=== PATIENT | male | born 1985 | race Caucasian/White ===

== ENCOUNTER 2022-04-23 16:43 | Emergency (ER) | payer MEDICAID, SELFPAY ==
--- NOTE | ~2022-04-23 | XR_ITS ---
EXAMINATION: XR FOREARM, RIGHT CLINICAL INFORMATION: Injury, pain. COMPARISON: None TECHNIQUE: AP and lateral views of the right elbow were obtained. FINDINGS: There is no visible acute fracture, dislocation or subluxation. There is no joint effusion or bony erosive changes. The soft tissues are normal. XR/XR forearm RT 2V IMPRESSION: Unremarkable right elbow exam.
[2022-04-23 16:52] VITALS: BP 131/80; PULSE 109; RESP 20; TEMP 36.8; O2SAT 97; BMI 25.0
--- NOTE | 2022-04-23 16:57 | ED_ITS ---
HPI - General Adult General Chief complaint: Extremity Injury, Upper Stated complaint: Forearm inj/work related Time Seen by Provider: 04/23/22 17:59 Source: patient Mode of arrival: ambulatory Limitations: no limitations History of Present Illness HPI narrative: Patient is a 36 year old assigned male at with no reported medical history presenting to the emergency department today with right wrist / forearm pain. Patient states that yesterday he was lifting a heavy box of meat at work when he felt and heard a pop in his right wrist. Patient states that ever since then there has been minimal swelling and some pain in the right wrist. Patient denies any weakness, numbness, dizziness, lightheadedness, abdominal pain, nausea, vomiting, fever, chills, blurry vision, double vision, loss of vision, chest carlito n, difficulty breathing, shortness of breath, back pain, night sweats, pain with urination, increased urinary frequency, increased urinary urgency, blood in his urine or stool, syncope or a near syncopal episode, bowel incontinence, bladder incontinence, bowel retention, bladder retention, or any other complaints at this time. Onset (ago): day(s) (2) Location: right and upper extremity Radiation: non-radiation Severity: mild Severity scale (1-10): 2 Quality: aching and dull Pain Consistency: constant Relieving factors: none Exacerbating factors: none Associated symptoms: denies other symptoms Treatments prior to arrival: none Related Data Previous Rx's Medication Instructions Recorded prednisone 20 mg tablet 20 mg PO DAILY 7 days #7 tabs 04/23/22 Allergies Allergy/AdvReac Type Severity Reaction Status Date / Time No Known Allergies Allergy Verified 04/23/22 16:58 Review of Systems Constitutional: Constitutional: Reports no additional constitutional complaints, Denies chills, Denies fever(s) and Denies night sweats Eyes: Eyes: Reports no additional eye complaints, Denies blurry vision, Denies change in vision, Denies diplopia, Denies eye discharge, Denies loss of vision and Denies eye pain ENT: Denies dizziness Cardiovascular: Cardiovascular: Reports no additional cardiovascular complaints, Denies chest pain, Denies lightheadedness, Denies Loss of Consciousness and Denies dyspnea Respiratory: Respiratory: Reports no additional respiratory complaints and Denies dyspnea Gastrointestinal: Gastrointestinal: Reports no additional gastrointestinal complaints, Denies abdominal pain, Denies melena, Denies hematochezia, Denies change in bowel habits and Denies change in stool character Genitourinary: Genitourinary: Reports no additional male genitourinary complaints, Denies hematuria, Denies oliguria, Denies difficulty urinating, Denies dysuria, Denies urinary frequency, Denies urinary hesitancy, Denies urinary incontinence and Denies urinary urgency Musculoskeletal: Musculoskeletal: Reports no additional musculoskeletal complaints, Denies numbness and Denies tingling Comments: right wrist pain Neurologic: Denies dizziness, Denies loss of vision, Denies numbness and Denies tingling Psychiatric: Psychiatric: Reports no additional psychiatric complaints Endocrine: Endocrine: Reports no additional endocrine complaints Hematologic/Lymphatic: Hematologic/Lymphatic: Reports no additional hematologic/lymphatic complaints Allergic/Immunologic: Allergic/Immunologic: Reports no additional allergic/immunologic complaints PMFSH Past Medical History Attestation statement: The following information was validated with the patient. Source: old records reviewed and nursing notes reviewed Social History Social History Advance Directives: No Advance Directives Information Provided: No Physical Exam ED Vital Signs: Vital Signs - 24 hr 04/23/22 16:52 Temperature 98.3 F Pulse Rate 109 H Respiratory Rate 20 Blood Pressure 131/80 Pulse Oximetry 97 Oxygen Delivery Method Room Air BMI result Body Mass Index 25.0 Const General: cooperative, no acute distress, alert and awake Nutritional Appearance: well nourished Orientation/consciousness: patient oriented x3 Limitations: no limitations HENMT Head: Yes normal to inspection and Yes atraumatic Ears: hearing grossly normal bilaterally and external ears normal General nose exam: Normal external nose present, no nasal discharge noted and no epistaxis Face and sinus: Yes normal facial exam, No abrasion and No laceration Mouth: Normal oral and palatal mucosa present, no drooling and no muffled voice Eyes General: appearance normal, both eyes and all related structures Periorbital: periorbital findings normal Eyelids: Yes eyelids normal Conjunctivae: conjunctivae normal Pupils: Equal, round and reactive pupils present EOM: EOMs intact bilaterally Neck Neck: Yes normal visual inspection, Yes full ROM and Yes no lymphadenopathy Chest Chest palpation & inspection: normal inspection of the chest Resp Effort & Inspection: normal respiratory effort and able to speak in complete sentences Auscultation: clear to auscultation bilaterally Cardio Rate: regular rate Rhythm: regular rhythm GI Inspection: Yes normal to inspection Neuro General: patient oriented x3 and moves all extremities Cranial nerves: Yes Equal, round and reactive pupils present Cognition (Neuro): normal cognition Motor exam (neuro): 5/5 motor strength present throughout Sensory Exam: Normal double simultaneous stimulation for sensation Coordination: [id number] test normal Extrem Other: minimal swelling to the dorsal aspect of the right wrist - specifically along the radial aspect General: Yes full ROM and Yes capillary refill normal Psych Appearance: grossly normal Mental Status: mental status grossly normal Affect: normal affect Attitude: cooperative Thought process: Normal thought process present Thought content: Normal thought content present Insight: Good insight present (Psych) Course Course Course Narrative: RME performed by Tammy Puentes PA-C. Patient is a 36 year old male p resenting to the emergency department with right forearm pain. Patient states that he was moving heavy boxes of meat when he felt a pop in his right forearm and has had pain ever since. XR ordered. Patient placed back in waiting room pending room availability and results. Procedures Orthopedic Splinting/Casting Injury #1: Side: right Upper Extremity Injury Location: wrist Upper Extremity Immobilizer: thumb spica Medical Decision Making Medical Decision Making MDM Narrative: Patient is a 36 year old assigned male at with no reported medical history presenting to the emergency department today with right wrist pain. Patient's physical exam showed minimal swelling to the dorsal aspect of the right wrist but was otherwise unremarkable. Patient's right wrist x-ray showed no acute process. I explained my physical exam findings as well as all test results to the patient. I answered all questions asked by the patient. Patient was placed in a thumb spica splint, without incident. I stressed the importance of the patient taking his medication as prescribed. I stressed the importance of the patient following up with his primary care provider and an orthopedic provider. I stressed the importance of the patient returning to the emergency department immediately if his symptoms were to worsen or if he were to develop any dizziness, shortness of breath, difficulty breathing, chest pain, blurry vision, loss of vision, nausea, vomiting, abdominal pain, fever, chills, back pain, or any other complaints. Patient verbalized agreement and understanding with this treatment plan and discharge. Differential Diagnosis Differential Diagnoses: The differential diagnosis associated with the presentation includes right wrist strain, right wrist sprain, right wrist pain Radiology Impression Radiologist Impression: My interpretation is in agreement with the radiologist's impression of this imaging study. EXAMINATION: XR FOREARM, RIGHT CLINICAL INFORMATION: Injury, pain.? COMPARISON: None? TECHNIQUE: AP and lateral views of the right elbow were obtained. FINDINGS: There is no visible acute fracture, dislocation or subluxation. There is no joint effusion or bony erosive changes. The soft tissues are normal.? XR/XR forearm RT 2V IMPRESSION: Unremarkable right elbow exam. ? Dictated By: Loco De Leon MD Signed By: Electronically signed by Loco De Leon MD 04/23/22 2335 Discharge Plan Discharge Clinical Impression: Sprain and strain of wrist Patient Disposition: Home, Self-Care Instructions: Wrist Injury (ED) Additional Instructions: Follow up with your primary care provider and an orthopedic provider. Return to the emergency department immediately if your symptoms worsen or if you develop any dizziness, shortness of breath, difficulty breathing, chest pain, blurry vision, loss of vision, nausea, vomiting, abdominal pain, fever, chills, back pain, or any other complaints. Prescriptions: New prednisone 20 mg tablet 20 mg PO DAILY 7 Days Qty: 7 0RF Referrals: [facility] [place] [facility] [Provider Group] (Call to establish and follow up with a primary care provider. If you already have a primary care provider, please follow up with them. ) [facility] [place] [facility] [Provider [facility]] (Call to establish and follow up with a primary care provider. If you already have a primary care provider, please follow up with them. ) [facility] [place] [facility] [Provider [facility]] (Call to establish and follow up with a primary care provider. If you already have a primary care provider, please follow up with them. ) [facility] [place] [facility] [Provider Group] (Call to establish and follow up with an orthopedic provider. ) [facility] [Provider Group] (Call to establish and follow up with [facility] due to this being a work related injury. ) Stand Alone Forms: Work/School Release Interventions: ED Discharge Assessment Last Done: 04/23/22 18:21 Print Language: Sami
== END 2022-04-23 19:00 | disposition home or self-care (01) ==
PROVIDERS: Emergency Provider Internal Medicine
DX: S63.501A Unspecified sprain of right wrist, initial encounter (principal); X50.0XXA Overexertion from strenuous movement or load, initial encounter; Y93.9 Activity, unspecified; Y92.9 Unspecified place or not applicable; Y99.0 Civilian activity done for income or pay; Z79.899 Other long term (current) drug therapy
CPT/HCPCS: 29125; 73090; 99283

== ENCOUNTER 2023-06-09 14:32 | Emergency (ER) | payer OTHER, MEDICAID, SELFPAY ==
--- NOTE | ~2023-06-09 | XR_ITS ---
EXAMINATION: XR THORACIC SPINE CLINICAL INFORMATION: Low back pain COMPARISON: None available. TECHNIQUE: 3 views of the thoracic spine were obtained. FINDINGS: There is normal thoracic kyphosis. The vertebral heights and alignment are normal. No visible acute fracture, dislocation or subluxation seen. XR/XR thoracic spine 3V IMPRESSION: Unremarkable thoracic spine exam.
[2023-06-09 15:19] VITALS: BP 110/60; PULSE 78; RESP 16; TEMP 36.6; O2SAT 97; BMI 25.4
[2023-06-09] MEDS: Acetaminophen 325 MG TABLET 975 MG PO (15:26)
[2023-06-09] MEDS: Lidocaine 4 % Patch ADH..PATCH 1 PATCH TRANSDERMA (15:31)
--- NOTE | 2023-06-09 15:31 | ED.BACK ---
HPI - Back Pain/Injury General Chief Complaint: Back Pain/Injury Stated Complaint: back inj at work Time Seen by Provider: 06/09/23 16:41 Source: patient Mode of arrival: ambulatory Limitations: no limitations History of Present Illness HPI Narrative: 37-year-old otherwise healthy male presents the ER for evaluation of acute onset of severe middle back pain that started today when he was lifting a heavy conveyor at work. He was lifting it with 2 other people when it began to fall, hip hold him downward and pulled on his middle back. He reports immediate pain and feeling a pop in his middle back. He reports at the time the pain radiated down to his right buttock and up to his right Side of his neck. He denies any numbness, weakness, tingling at this time. He states pain is worse with deep breaths, any movement. He has not taken any medications for the pain. He denies any chest pain, abdominal pain, nausea, vomiting, diarrhea. MD elicited complaint: back injury Onset (ago): hour(s) Timing: constant Severity: moderate Quality: sharp, aching and spasming Location: thoracic spine Radiation: buttocks and neck Exacerbating factors: movement and walking Context: while lifting Associated symptoms: denies other symptoms Work related injury: Yes Related Data Previous Rx's Medication Instructions Recorded prednisone 20 mg tablet 20 mg PO DAILY 7 days #7 tabs 04/23/22 cyclobenzaprine 10 mg tablet 10 mg PO TID PRN muscle spasm #10 06/09/23 tabs ibuprofen 600 mg tablet 600 mg PO Q8H PRN pain #20 tabs 06/09/23 lidocaine 5 % topical patch 1 patch topical DAILY #15 ea 06/09/23 Allergies Allergy/AdvReac Type Severity Reaction Status Date / Time No Known Allergies Allergy Verified 04/23/22 16:58 Review of Systems Review of Systems: Yes all other systems are reviewed and are negative [facility] Social History Social History Advance Directives: No Advance Directives Information Provided: No Physical Exam Vital Signs: Vital Signs: Last Vital Signs Temp 98 F 06/09/23 16:40 Pulse 76 06/09/23 16:40 Resp 19 06/09/23 16:40 BP 118/62 06/09/23 16:40 Pulse Ox 98 06/09/23 16:40 O2 Del Method Room Air 06/09/23 16:40 BMI result Body Mass Index 25.4 Appearance: Alert. Oriented X3. No acute distress. HEENT: normal inspection CVS: Normal heart rate and rhythm. Pulses normal. Respiratory: No respiratory distress. Skin: Skin warm and dry. Normal skin color. Normal skin turgor. No rashes. Back: normal inspection. limited flexion and lateral rotation 2/2 pain. soft tissue tenderness of the entire thoracic area w/ palpable spasm throughout in the area of the latissimus dorsi. Extremities: normal inspection x 4 Neuro: Oriented X 3. No motor deficit. No sensory deficit. steady gait Course Course Course Narrative: This is an RME: Additional HPI, ROS, PE not included below will be deferred to primary provider. 37 year old male tried catching a heavy object around 250 lbs now having midline thoracic back pain and burning. Pain w/ movement. No urinary bowel incontinence/retention, no saddle paresthesias Medications Administered Discontinued Medications Generic Name Dose Route Start Last Admin Trade Name Bry PRN Reason Stop Dose Admin Acetaminophen 975 mg 06/09/23 15:24 06/09/23 15:26 Acetaminophen 325 Mg Tablet PO 06/09/23 15:25 975 mg ONCE ONE Administration Ibuprofen 800 mg 06/09/23 15:24 06/09/23 15:25 Ibuprofen 800 Mg Tablet PO 06/09/23 15:25 Not Given ONCE ONE Lidocaine 1 patch 06/09/23 15:27 06/09/23 15:31 Lidocaine 4 % Patch Adh..Patch TRANSDERMA 06/09/23 15:28 1 patch ONCE ONE Administration Protocol Medical Decision Making Medical Decision Making MDM Narrative: 37-year-old male presents to the ER for evaluation of middle back pain that started today when he was carrying something heavy and it slipped, causing his body to be pulled downward. He has diffuse soft tissue tenderness throughout his thoracic back. No ecchymosis on the back. No midline tenderness of the thoracic spine. X-ray of the thoracic spine was negative. His lungs are clear. He is ambulating normally. No numbness or tingling of the trunk. His pain and injury is most likely due to muscle strain and spasm. will treat with NSAIDs, muscle relaxers and outpatient follow-up. Patient should refrain from heavy lifting and was counseled on this. He will follow up with his PCP and were connection. Stable for discharge. Differential Diagnosis Differential Diagnoses: The differential diagnosis associated with the presentation includes Inflammatory disorders, trauma, nerve root compression, radiculopathy, plexopathy, degenerative disc disease, disc herniation, spinal stenosis, sacroiliac joint dysfunction, facet joint injury, and less likely infection?like abscess or diskitis Independent Interpretation I performed an independent interpretation of an: Plain X-Ray Interpretation: No acute fracture appreciated Radiology Impression Discussion of test interpretation with radiology: I have reviewed the radiologist's reading. Radiologist Impression: EXAMINATION: XR THORACIC SPINE CLINICAL INFORMATION: Low back pain COMPARISON: None available. TECHNIQUE: 3 views of the thoracic spine were obtained. FINDINGS: There is normal thoracic kyphosis. The vertebral heights and alignment are normal. No visible acute fracture, dislocation or subluxation seen. XR/XR thoracic spine 3V IMPRESSION: Unremarkable thoracic spine exam. External Record Review External record reviewed: Outpatient record and Prior outpatient labs Prescription Management I considered prescription management with: Pain Medication Critical Care Time Critical Care Time Critical Care Time: No Discharge Plan Discharge Clinical Impression: Thoracic back pain Qualifiers: Chronicity: acute Back pain laterality: bilateral Qualified Code(s): M54.6 - Pain in thoracic spine Patient Disposition: Home, Self-Care Instructions: Back Pain (ED) Additional Instructions: Your back x-ray today was unremarkable. Your pain is most likely due to muscle strain and spasm. No bending, lifting or twisting. Use ice several times per day for 20 minutes at a time for the next 48 hours and then change to heat. Take medications as prescribed to help with pain and discomfort. Follow up with your Primary Care Doctor this week. If your pain worsens, if you develop new numbness, tingling, weakness, loss of function or incontinence call 911 or come back to the ER right away for evaluation. Prescriptions: New cyclobenzaprine 10 mg tablet 10 mg PO TID PRN (Reason: muscle spasm) Qty: 10 0RF ibuprofen 600 mg tablet 600 mg PO Q8H PRN (Reason: pain) Qty: 20 0RF lidocaine 5 % adhesive patch,medicated 1 patch topical DAILY Qty: 15 0RF Rx Instructions: leave on most painful area for up to 12 hrs No Action prednisone 20 mg tablet 20 mg PO DAILY 7 Days Qty: 7 0RF Referrals: [facility] [Provider Group] (back pain 2/2 work injury) Stand Alone Forms: Work/School Release
[2023-06-09 16:40] VITALS: BP 118/62; PULSE 76; RESP 19; TEMP 36.6; O2SAT 98
[2023-06-09 17:51] VITALS: BP 118/62; PULSE 76; RESP 19; TEMP 36.6; O2SAT 98
== END 2023-06-09 17:52 | disposition home or self-care (01) ==
PROVIDERS: Emergency Provider Emergency Medicine
DX: S29.012A Strain of muscle and tendon of back wall of thorax, initial encounter (principal); M54.6 Pain in thoracic spine; X50.0XXA Overexertion from strenuous movement or load, initial encounter; Y93.9 Activity, unspecified; Y92.9 Unspecified place or not applicable; Y99.0 Civilian activity done for income or pay
CPT/HCPCS: 72072; 99283